=== PATIENT | female | born 1980 | race Caucasian/White ===

== ENCOUNTER 2016-11-16 05:30 | Emergency (ER) | payer OTHER ==
[2015-03-24 10:15] VITALS: BMI 22.7
[~2016-11-16 05:30] MED LIST: HYDROCODONE-APA1 TAB PO; IBUPROFEN600 MG PO; MICRONOR PO; POTASSIUM PO; TRAZODONE HCL50 MG PO
[2016-11-16 05:51] LABS: HCG URINE NEGATIVE (NEGATIVE)
[2016-11-16 05:56] LABS: UDS - AMPHET POSITIVE QUAL (NEGATIVE); UDS - BARB NEGATIVE QUAL (NEGATIVE); UDS - BENZO POSITIVE QUAL (NEGATIVE); UDS - COCAINE NEGATIVE QUAL (NEGATIVE); UDS - METH NEGATIVE QUAL (NEGATIVE); UDS - OPIATE POSITIVE QUAL (NEGATIVE); UDS - PCP NEGATIVE QUAL (NEGATIVE); UDS - THC POSITIVE QUAL (NEGATIVE)
[2016-11-16 06:07] LABS: APPEARANCE CLOUDY (CLEAR); BILIRUBIN NEGATIVE (NEGATIVE); COLOR YELLOW (YELLOW); GLUCOSE NEGATIVE (NEGATIVE); KETONE NEGATIVE (NEGATIVE); LEUKOCYTE ESTERASE NEGATIVE (NEGATIVE); NITRITE NEGATIVE (NEGATIVE); PROTEIN 1+ mg/dL (NEGATIVE); RED CELLS - URINE 0-5 /hpf (0-5); UROBILINOGEN NORMAL (NORMAL); WHITE CELLS - URINE 0-5 /hpf (0-5)
[2016-11-16 06:33] LABS: BASOPHILS 0.7 % (0.0-2.0); EOSINOPHILS 1.4 % (0-7); HEMATOCRIT 43.7 % (36.0-48.0); IMMATURE GRANULOCYTES 0.1 % (0-5); MCH 32.2 pg (26.0-34.0); MCHC 34.3 g/dL (31.0-37.0); MCV 93.8 fL (80.0-100.0); MEAN PLATELET VOLUME 10.2 fL (7.4-10.4); MONOCYTES 7.5 % (2-11); NEUTROPHILS 60.3 % (40-80); RBC 4.66 10x6/uL (4.00-5.40); RDW 12.9 % (11.5-14.5)
[2016-11-16 06:34] LABS: PLATELET COUNT 258 10x3/uL (130-400)
[2016-11-16 06:46] LABS: ALBUMIN 3.4 g/dL (3.4-5.0); ALKALINE PHOSPHATASE 84 U/L (46-116); ALT (SGPT) 45 U/L (10-68); BILIRUBIN - TOTAL 0.24 mg/dL (0.2-1.3); CALC OSMOLALITY 277 mosm/kg (275-300); CALCIUM 9.1 mg/dL (8.5-10.1); CARBON DIOXIDE 30.8 mmol/L (21.0-32.0); CHLORIDE - SERUM 103 mmol/L (98-107); CREATININE - SERUM 0.7 mg/dL (0.6-1.3); GLUCOSE 95 mg/dL (74-106); PROTEIN - SERUM 6.6 g/dL (6.4-8.2); SODIUM 141 mmol/L (136-145); UREA NITROGEN 5 mg/dL (7-18); eGFR NON AFRICAN AMERICAN > 90 mL/min (90-120)
[2016-11-16 06:49] LABS: POTASSIUM - SERUM 2.9 mmol/L (3.5-5.1)
== END 2016-11-16 08:40 | disposition home or self-care (01) ==
LOC: D.ER 05:30
PROVIDERS: Family Medicine
DX: R45.851 Suicidal ideations (principal); Z91.5 Personal history of self-harm; F41.9 Anxiety disorder, unspecified